=== PATIENT | male | born 1990 | race Caucasian/White ===

== ENCOUNTER 2018-12-20 22:47 | Emergency (ER) | payer MEDICAID, OTHER ==
[~2018-12-20] VITALS: Ht 180.3 cm; Wt 67.1 kg
[~2018-12-20 22:47] MED LIST: Acetaminophen/Hydrocodone Bi PO; CLIN-178 PO; DOCU-299 PO; FLOR250 PO
[2018-12-20 22:50] VITALS: BP 150/90
--- NOTE | 2018-12-20 22:52 | NUR ---
TO LOBBY A/ W BED AND XRAY , AMBULATORY
--- NOTE | 2018-12-20 23:37 | NUR ---
BIB SELF REPORTS HAVING DISLOCATED HIS SHOULDER YESTERDAY WHILE PLAYING BASKETBALL BUT THAT IT WENT BACK INTO PLACE ON ITS OWN. SWELLING AND BRUISING NOTED. -ROM +CMS. STATES HE HAS DISLOCATED HIS SHOULDER IN THE PAST.
[2018-12-21 00:09] VITALS: BP 136/82
== END 2018-12-21 00:10 | disposition home or self-care (01) ==
LOC: MED 22:47
DX: M25.512 Pain in left shoulder (principal); Z79.2 Long term (current) use of antibiotics; Z79.899 Other long term (current) drug therapy; W50.0XXA Accidental hit or strike by another person, initial encounter; Y93.67 Activity, basketball; Y92.39 Other specified sports and athletic area as the place of occurrence of the external cause; Y99.8 Other external cause status
CPT/HCPCS: 73030; 99283